=== PATIENT | male | born 1970 | race Two or more races ===

== ENCOUNTER 2017-03-02 11:09 | Emergency (ER) | payer OTHER ==
[2017-03-02 11:23] VITALS: BMI 29.0
--- NOTE | 2017-03-02 11:47 | PDOC ---
History of Present Illness - General History Source: Care Provider, Longterm Records Exam Limitations: Clinical Condition - History of Present Illness Initial Comments: 03/02/17 12:04 The patient is a 46 year old nonverbal male wheelchair bound with significant past medical history of profound MR, spastic quadriplegia, seizure who presents to the ED BIBA from [facility] after g-tube came out. As per skin pass operator, at bedside, patient was on his way to his day program when the skin pass operator placed his seatbelt over him and noted that his g-tube fell out. According to skin pass operator, patient is at his baseline. Allergies: NKDA Social History: No alcohol, tobacco, or drug use reported. Past Surgical History: None reported PCP: n/a <Jeanne Fernandez - Last Filed: 03/02/17 13:16> <Berta Gunderson - Last Filed: 03/02/17 13:20> - General Chief Complaint: G Tube Problem Stated Complaint: G-TUBE DISPLACED Time Seen by Provider: 03/02/17 11:43 Past History <Jeanne Fernandez - Last Filed: 03/02/17 13:16> - Past Medical History GI Disorders: Yes (G Tube, GERD) Disorders: Yes Seizures: Yes Thyroid Disease: Yes (hypothyroidism) - Psycho/Social/Smoking Cessation Hx Suicidal Ideation: No Smoking History: Never smoked Information on smoking cessation initiated: No Hx Alcohol Use: No Drug/Substance Use Hx: No Substance Use Type: None <Berta Gunderson - Last Filed: 03/02/17 13:20> - Past Medical History Allergies/Adverse Reactions: Allergies Allergy/AdvReac Type Severity Reaction Status Date / Time No Known Allergies Allergy Verified 03/02/17 11:24 Review of Systems - Review of Systems Able to Perform ROS?: No Comments:: 03/02/17 12:05 Unable to obtain secondary to patients clinical condition <Jeanne Fernandez - Last Filed: 03/02/17 13:16> *Physical Exam - Vital Signs Last Vital Signs Temp Pulse Resp BP Pulse Ox 89 18 135/86 98 03/02/17 11:19 03/02/17 11:19 03/02/17 11:19 03/02/17 11:19 - Physical Exam Comments: 03/02/17 12:05 GENERAL: Awake, in no acute distress HEAD: No signs of trauma EYES: PERRLA, EOMI, sclera anicteric, conjunctiva clear ENT: Auricles normal inspection, nares patent, oropharynx clear without exudates. Moist mucosa NECK: Normal ROM, supple, no lymphadenopathy, JVD, or masses LUNGS: Breath sounds equal, clear to auscultation bilaterally. No wheezes, and no crackles HEART: Regular rate and rhythm, normal S1 and S2, no murmurs, rubs or gallops ABDOMEN: Soft, nontender, normoactive bowel sounds. No guarding, no rebound. G- tube is intact. No surrounding erythema, no purulent discharge, no warmth EXTREMITIES: Contracted upper extremities. Quadriplegia. No edema. No clubbing or cyanosis. No cords, erythema, or tenderness. NEUROLOGICAL: Nonverbal. Patient is at baseline, as per skin pass operator. SKIN: Warm, Dry, normal turgor, no rashes or lesions noted. <Jeanne Fernandez - Last Filed: 03/02/17 13:16> - Vital Signs Last Vital Signs Temp Pulse Resp BP Pulse Ox 89 18 135/86 98 03/02/17 11:19 03/02/17 11:19 03/02/17 11:19 03/02/17 11:19 <Berta Gunderson - Last Filed: 03/02/17 13:20> ED Treatment Course - RADIOLOGY Radiograph Interpretation: 03/02/17 13:16 RADS/G TUBE REPLACEMENT Radiologist's Impression: Abdomen: G-tube placement A single view reveals scoliosis, abdominal distention and contrast injected into a G-tube which fills the stomach. The G-tube tip is in the gastric body. The imaging is available for review. Impression: Functional G-tube with tip in gastric body. <Jeanne Fernandez - Last Filed: 03/02/17 13:16> Medical Decision Making - Medical Decision Making 03/02/17 12:58 46yo male with g tube out of place -18f g tube was old. new 18f g tube placed with ease in the ED -g tube xray ordered to confirm site and placement 03/02/17 13:16 radiology report reviewed and image reviewed. G tube in place. Stable for d/c to home. Caretakers updated. Pt at baseline MS <Berta Gunderson - Last Filed: 03/02/17 13:20> *DC/Admit/Observation/Transfer - Attestations Scribe Attestion: 03/02/17 12:06 Documentation prepared by Jeanne Fernandez, acting as healthcare or medical for Berta Gunderson DO, MD/. <Jeanne Fernandez - Last Filed: 03/02/17 13:16> - Discharge Dispostion Admit: No - Attestations Physician Attestion: 03/02/17 12:59 I, Dr. Berta Gunderson DO, attest that this document has been prepared under my direction and personally reviewed by me in its entirety. I further attest, that it accurately reflects all work, treatment, procedures and medical decision -making performed by me. <Berta Gunderson - Last Filed: 03/02/17 13:20> Diagnosis at time of Disposition: Gastrostomy tube dysfunction - Discharge Dispostion Disposition: HOME Condition at time of disposition: Stable - Referrals Referrals: Yee Godoy MD [Non Staff, Medical] - - Patient Instructions Printed Discharge Instructions: How to Care for Your PEG Tube
[2017-03-02 13:42] VITALS: BP 130/82; PULSE 67; TEMP 97.9
== END 2017-03-02 13:50 | disposition home or self-care (01) ==
LOC: JER 11:09
PROC: 0D20XUZ Change Feeding Device in Upper Intestinal Tract, External Approach (ICD-10-PCS; principal; 2017-03-02)
DX: T85.528A Displacement of other gastrointestinal prosthetic devices, implants and grafts, initial encounter (principal); G82.50 Quadriplegia, unspecified; F73 Profound intellectual disabilities; G40.909 Epilepsy, unspecified, not intractable, without status epilepticus; E03.9 Hypothyroidism, unspecified
CPT/HCPCS: 49450; 99282-25

== ENCOUNTER 2018-04-14 11:56 | Emergency (ER) | payer OTHER ==
[2018-04-14 12:33] VITALS: TEMP 99.1; BMI 28.1
--- NOTE | 2018-04-14 13:45 | PDOC ---
History of Present Illness - General Chief Complaint: Seizure Stated Complaint: Seizure Time Seen by Provider: 04/14/18 12:42 History Source: Penitentiary Records, Other (aide) - History of Present Illness Initial Comments: 04/14/18 13:32 47 year old male with history of mental retardation, G-tube, seizure, and hypothyroidism presents ED status post seizure while in his day program today. As per bystander patient had a few seconds of generalized tremors and so EMS was called. By time EMS arrived he was not found to be postictal and had normal vital signs. Patient arrives here with normal rectal temperature moving his head and contracted arms without difficulty. Timing/Duration: resolved prior to arrival Severity: moderate Associated Symptoms: reports: seizure Past History - Travel Traveled outside of the country in the last 30 days: No - Past Medical History Allergies/Adverse Reactions: Allergies Allergy/AdvReac Type Severity Reaction Status Date / Time No Known Allergies Allergy Verified 04/14/18 12:14 Home Medications: Ambulatory Orders Levetiracetam 500 mg GT BID 03/02/17 Albuterol 0.083% Nebulizer Bre [Ventolin 0.083%] 1 neb NEB Q4H PRN 04/14/18 Baclofen 10 mg GT HS 04/14/18 Bisacodyl Suppository [Dulcolax Suppository -] 10 mg RC ASDIR PRN 04/14/18 Brimonidine Tartrate [Alphagan 0.15% -] 1 drop OD BID 04/14/18 Buspirone HCl [Buspar -] 10 mg GT BID 04/14/18 Carbamazepine Xr [Tegretol Xr -] 400 mg GT BID 04/14/18 Cholecalciferol (Vitamin D3) [Vitamin D] 2,000 unit GT 199904/14/18 Clonazepam 0.25 mg GT DAILY 04/14/18 Dextran 70/Hypromellose [Artificial Tears Eye Drops] 1 drop OU TID 04/14/18 Diazepam Rectal Gel [Diastat Rectal Gel -] 10 mg WA ONCE PRN 04/14/18 Dorzolamide HCl/Pf [Dorzolamide 2% Eye Drop] 1 drop OD BID 04/14/18 Fructooligosaccharides/Polydex [Fiber-Stat 15 gm/30 ml Liquid] 30 ml GT DAILY Lactose-Reduced Food/Fiber [Jevity 1.5 Radhames Liquid] 711 ml GT 199904/14/18 Latanoprost/Pf [Latanoprost 0.005% Eye Drop] 1 drop OD HS 04/14/18 Levothyroxine [Synthroid -] 100 mcg PO DAILY 04/14/18 Mineral Oil/Petrolatum,White [Artificial Tears Eye Ointment] 3.5 gm OU BID 04/14 Polyethylene Glycol 3350 [Miralax (For Daily Use) -] 17 gm GT DAILY 04/14/18 Sennosides [Senna] 2 tab GT 1800 04/14/18 Sodium Phosphate,Izard-Dibasic [Enema Ready To Use] 133 ml RC 199904/14/18 COPD: No GI Disorders: Yes (G Tube, GERD) Disorders: Yes Seizures: Yes Thyroid Disease: Yes (hypothyroidism) - Suicide/Smoking/Psychosocial Hx Smoking History: Never smoked Have you smoked in the past 12 months: No Information on smoking cessation initiated: No Hx Alcohol Use: No Drug/Substance Use Hx: No Substance Use Type: None Patient Lives Alone: No Lives with/in: custodial Review of Systems - Review of Systems Able to Perform ROS?: Yes Constitutional: No: Symptoms Reported HEENTM: No: Symptoms Reported Respiratory: No: Symptoms reported : No: Symptoms Reported Integumentary: No: Symptoms Reported Neurological: Yes: Seizure *Physical Exam - Vital Signs Last Vital Signs Temp Pulse Resp BP Pulse Ox 99.1 F 85 18 117/65 100 04/14/18 12:14 04/14/18 12:14 04/14/18 12:14 04/14/18 12:14 04/14/18 12:14 - Physical Exam General Appearance: Yes: Nourished, Appropriately Dressed. No: Apparent Distress HEENT: positive: TMs Normal. negative: MELISSA (opacity to left eye) Neck: positive: Supple, Other (noted soft mobile skin color orange-sized mass base of the right posterior neck) Respiratory/Chest: positive: Lungs Clear, Normal Breath Sounds. negative: Respiratory Distress, Accessory Muscle Use Cardiovascular: positive: Regular Rhythm, Regular Rate. negative: Murmur Gastrointestinal/Abdominal: positive: Soft, Other (g-tube to left upper quadrant intact). negative: Tenderness Extremity: positive: Normal Capillary Refill. negative: Pedal Edema Integumentary: positive: Normal Color, Warm, Moist ED Treatment Course - LABORATORY CBC & Chemistry Diagram: 04/14/18 14:15 04/14/18 13:08 - RADIOLOGY Radiology Studies Ordered: Category Date Time Status CERVICAL SPINE CT W/O CONTR [CT] Stat CT Scan 04/14/18 13:[address] WITHOUT CONTRAST [CT] Stat CT Scan 04/14/18 13:08 Ordered CHEST X-RAY PORTABLE* [RAD] Stat Radiology 04/14/18 13:08 Ordered Medical Decision Making - Medical Decision Making 04/14/18 13:24 CC: Seizure while at day program today. + history of seizure On exam: No acute finding afebrile Plan: Labs, urine, head CT cervical CT to evaluate mass on neck 04/14/18 16:17 Laboratory Tests 04/14/18 04/14/18 13:08 14:15 WBC 7.5 Hgb 14.1 Hct 42.7 Plt Count 284 Neutrophils % 64.0 Sodium 140 Potassium 3.9 Chloride 105 Carbon Dioxide 31 Anion Gap 4 L BUN 9 Creatinine 0.8 Creat Clearance w eGFR > 60 Random Glucose 81 Calcium 10.3 H Alkaline Phosphatase 155 H Albumin 3.[address] shows no evidence or focal intracranial lesion or hemorrhage seen. Mild chronic sinusitis. Cervical CT fails to mention mass to his right lower neck. UA pending 04/14/18 16:58 Laboratory Tests 04/14/18 15:30 Urine Ketones Negative Urine Blood 1+ H Urine Nitrite Negative Ur Leukocyte Esterase Negative Urine WBC (Auto) Pending 04/14/18 16:58 Patient will be sent back to [facility] [place] via ambulance with direct care staff worker. Will repeat vitals prior to discharge *DC/Admit/Observation/Transfer Diagnosis at time of Disposition: Seizure - Discharge Dispostion Disposition: HOME Condition at time of disposition: Good - Referrals - Patient Instructions Printed Discharge Instructions: DI for Seizure Disorder -- Adult Additional Instructions: Please provide patient with a safe environment providing his medications and feedings as ordered. - Post Discharge Activity
[2018-04-14 14:42] LABS: BASO % 0.7 % (0-2.0); EOS % 3.5 % (0-4.5); HEMATOCRIT 42.7 % (35.4-49); HEMOGLOBIN 14.1 GM/dL (11.7-16.9); LYMPH % 25.5 % (8-40); MEAN CELL VOLUME 93.8 fl (80-96); MEAN PLT VOLUME 8.3 fl (7.5-11.1); MONO % 6.3 % (3.8-10.2); PLATELET COUNT 284 K/MM3 (134-434); RBC 4.55 M/mm3 (4.00-5.60); RDW 13.4 % (11.9-15.9); WHITE BLOOD COUNT 7.5 K/mm3 (4.0-10.0)
[2018-04-14 15:09] LABS: ALBUMIN 3.3 g/dl (3.4-5.0); ALK PHOS 155 U/L (45-117); ANION GAP 4 MMOL/L (8-16); BILIRUBIN,TOTAL 0.2 mg/dL (0.2-1); BLOOD UREA NITROGEN 9 mg/dL (7-18); CALCIUM 10.3 mg/dL (8.5-10.1); CHLORIDE 105 mmol/L (98-107); CO2 31 mmol/L (21-32); CREATININE 0.8 mg/dL (0.55-1.3); GLUCOSE,RANDOM 81 mg/dL (74-106); MAGNESIUM 2.3 mg/dL (1.8-2.4); POTASSIUM 3.9 mmol/L (3.5-5.1); SGOT/AST 21 U/L (15-37); SGPT/ALT 26 U/L (13-61); SODIUM 140 mmol/L (136-145); TOT PROT 7.7 g/dl (6.4-8.2)
[2018-04-14 16:40] LABS: URINE APPEARANCE CLOUDY; URINE BILIRUBIN NEGATIVE (<2.0 mg/dL); URINE COLOR YELLOW; URINE GLUCOSE (UA) NEGATIVE (NEGATIVE); URINE KETONE NEGATIVE (NEGATIVE); URINE LEUK ESTERASE NEGATIVE (NEGATIVE); URINE NITRITE NEGATIVE (NEGATIVE); URINE PROTEIN NEGATIVE (NEGATIVE); URINE UROBILINOGEN NEGATIVE mg/dL (0.2-1.0)
[2018-04-14 17:17] LABS: URINE BACTERIA RARE /hpf (NONE SEEN); YEAST MODERATE
[2018-04-14 20:01] VITALS: BP 127/50; PULSE 84
== END 2018-04-14 17:56 ==
LOC: JER 11:56
DX: R56.9 Unspecified convulsions (principal); F79 Unspecified intellectual disabilities; E03.9 Hypothyroidism, unspecified; Z93.1 Gastrostomy status
CPT/HCPCS: 36415; 70450-TC; 71045-TC-FY; 72125-TC; 80053; 81003; 81015; 83735; 85025; 87086; 99283-25